=== PATIENT | male | born 1965 ===

== ENCOUNTER 2017-05-21 17:14 | Inpatient (IN) | payer OTHER ==
[2017-05-21] MEDS ORDERED: DiphenhydrAMINE 50 mg/ml Inj IVP STA (17:41)
[2017-05-21] MEDS ORDERED: ceFAZolin 1 GM in Sodium Chloride 0.9% 100 ML IVPB ONE (17:44)
[2017-05-21] MEDS ORDERED: Sodium Chloride 0.9% 1,000 ML IV STA (17:45)
--- NOTE | 2017-05-21 17:48 | ED PDOC ---
Lower Extremity Pain/Injury Time Seen by Provider: 05/21/17 17:48 Chief Complaint (Nursing): Lower Extremity Problem/Injury Chief Complaint (Provider): left leg pain/rash History Per: Patient (52 y/o male h/o HEP C/ IVDA here with complaint of generalized urticaria and itching x 3 days with increasing pain/swelling left leg. Denies any fevers or chills. Unsure of any allergens.) Past Medical History Reviewed: Historical Data, Nursing Documentation, Vital Signs Vital Signs: Last Vital Signs Temp 98.2 F 05/21/17 17:21 Pulse 92 H 05/21/17 17:21 Resp 97 H 05/21/17 17:21 BP Pulse Ox - Family History Family History: States: No Known Family Hx - Allergies Allergies/Adverse Reactions: Allergies Allergy/AdvReac Type Severity Reaction Status Date / Time No Known Allergies Allergy Verified 10/30/16 18:13 Review of Systems ROS Statement: Except As Marked, All Systems Reviewed And Found Negative Physical Exam - Reviewed Nursing Documentation Reviewed: Yes Vital Signs Reviewed: Yes - Physical Exam Appears: Positive for: Well, Non-toxic, No Acute Distress Head Exam: Positive for: ATRAUMATIC, NORMAL INSPECTION, NORMOCEPHALIC Skin: Positive for: Normal Color, Warm, Rash (urticaria noted posterior thorax. similar elevated erythematous lesions noted upper and lower extremities. ) Eye Exam: Positive for: EOMI, Normal appearance, PERRL ENT: Positive for: Normal ENT Inspection Neck: Positive for: Normal, Painless ROM Cardiovascular/Chest: Positive for: Regular Rate, Rhythm Respiratory: Positive for: CNT, Normal Breath Sounds Gastrointestinal/Abdominal: Positive for: Normal Exam, Bowel Sounds, Soft Back: Positive for: Normal Inspection Extremity: Positive for: Normal ROM, Tenderness, Swelling, Other (left leg with erythema and pitting edema ) Neurologic/Psych: Positive for: Alert, Oriented - Laboratory Results Result Diagrams: 05/21/17 18:40 05/21/17 18:40 - Progress ED Course And Treament: Ancef 1 gm Vancomycin 1200 mg iv x 1 dose NS 1 liter 500 ml per hour duplex: neg for dvt Vitals repeated. wnl d/w family med resident Admit to nydia for cellulitis Disposition - Clinical Impression Clinical Impression: Cellulitis - Patient ED Disposition Is Patient to be Admitted: Yes - Disposition Disposition Time: 20:21 Condition: FAIR Forms: [facility] (French) - Pt Status Changed To: Hospital Disposition Of: Inpatient - Admit Certification Admit to Inpatient:: After my assessment, the patient will require hospitalization for at least two midnights. This is because of the severity of symptoms shown, intensity of services needed, and/or the medical risk in this patient being treated as an outpatient.
[2017-05-21] MEDS ORDERED: DiphenhydrAMINE 50 mg/ml Inj ONE (18:44)
[2017-05-21 19:03] LABS: BASO % 0.3 % (0.0-2.0); EOS # 0.3 K/uL (0.0-0.7); EOS % 4.1 % (0.0-4.0); HEMOGLOBIN 14.1 g/dL (12.0-18.0); LYMPH # 2.6 K/uL (1.0-4.3); LYMPH % 33.3 % (20.0-40.0); MEAN CELL VOLUME 87.8 fl (80.0-94.0); MEAN CORPUSCULAR HEMOGLOBIN 28.7 pg (27.0-31.0); MEAN CORPUSCULAR HGB CONC 32.7 g/dL (33.0-37.0); MEAN PLATELET VOLUME 8.8 fl (7.2-11.7); MONO # 0.5 K/uL (0.0-0.8); MONO % 6.3 % (0.0-10.0); NEUT # 4.4 K/uL (1.8-7.0); NRBC % 0.1 % (0.0-0.0); RBC 4.91 Mil/uL (4.40-5.90); RED CELL DISTRIBUTION WIDTH 14.4 % (11.5-14.5); WHITE BLOOD COUNT 7.9 K/uL (4.8-10.8)
[2017-05-21 19:24] LABS: ALB/GLOB RATIO 1.3 (1.0-2.1); ALBUMIN 4.4 g/dL (3.5-5.0); ALT/SGPT 47 U/L (21-72); AST/SGOT 33 U/L (17-59); BLOOD UREA NITROGEN 14 mg/dl (9-20); CALCIUM 9.4 mg/dL (8.4-10.2); GFR AFRICAN-AMERICAN > 60; GFR NON-AFRICAN AMERICAN > 60
--- NOTE | 2017-05-21 20:14 | US ---
EXAM: US Duplex Left Lower Extremity Veins CLINICAL HISTORY: 52 years old, male; Pain; Leg, lower; Left; Additional info: R/O dvt TECHNIQUE: Real-time ultrasound scan of the veins of the left lower extremity with color Doppler flow, spectral waveform analysis and compression. COMPARISON: No relevant prior studies available. FINDINGS: Real-time imaging shows veins with normal compressibility. Doppler evaluation shows normal venous flow with respiratory variation and augmentation with distal compression. Left groin lymph node measured at 2.8 x 0.8 cm in. IMPRESSION: No evidence for deep venous thrombosis in the visualized veins.
[2017-05-21 20:31] LABS: VENOUS BLOOD GAS PCO2 64 mmHg (40-60); VENOUS BLOOD GAS PO2 16 mm/Hg (30-55); VENOUS BLOOD PH 7.31 (7.32-7.43)
--- NOTE | 2017-05-21 21:08 | CP.PCM.HP ---
History of Present Illness - History of Present Illness History of Present Illness: 52 yr old M with PMH of IV drug abuse ( heroine use x 20 yrs) presenting with 3 week history of worsening left leg cellulitis. Started as swelling and ''rash'' per patient approx 3 weeks ago proximal to the left ankle. Denies recent injury or trauma to the area, recent travel or hospitalizations, denies using feet as injection site for heroine use. Denies fevers, chills, n/v/cp/sob/abd pain/urinary sx or bloody stools. Admits to heroine use x 20 years, uses median cubital and cephalic veins BL as primary injection sites. Denies ETOH, tobacco or other drugs. PMD: seen once at [facility] PMH: denies PSH: denies Allergies:NKDA MEds: none SH: Admits to heroine use x 20 years, uses median cubital and cephalic veins BL as primary injection sites. Denies ETOH, tobacco or other drugs. ED Course: Ancef IV x 1, Vanco IV x 1, BCX, labs, no leukocytosis, EKG, VSS afebrile Present on Admission - Present on Admission Any Indicators Present on Admission: No History of DVT/PE: No History of Uncontrolled Diabetes: No Review of Systems - Review of Systems Review of Systems: see hpi Past Patient History - Past Social History Smoking Status: Heavy Smoker > 10 Cigarettes Daily - HEMATOLOGICAL/ONCOLOGICAL Hx Hepatitis C: Yes - PSYCHIATRIC Hx Substance Use: No - ANESTHESIA Hx Anesthesia: No Meds Allergies/Adverse Reactions: Allergies Allergy/AdvReac Type Severity Reaction Status Date / Time No Known Allergies Allergy Verified 05/21/17 20:30 Physical Exam - Constitutional Appears: Non-toxic, No Acute Distress - Head Exam Head Exam: ATRAUMATIC - Eye Exam Eye Exam: EOMI Pupil Exam: PERRL - ENT Exam ENT Exam: Mucous Membranes Moist - Neck Exam Neck exam: Positive for: Full Rom. Negative for: Lymphadenopathy - Respiratory Exam Respiratory Exam: Clear to Auscultation Bilateral - Cardiovascular Exam Cardiovascular Exam: REGULAR RHYTHM, +S1, +S2 - GI/Abdominal Exam GI & Abdominal Exam: Normal Bowel Sounds, Soft. absent: Tenderness - Extremities Exam Extremities exam: Positive for: normal capillary refill, pedal edema (left sided pedal edema, ), pedal pulses present (1+ on left, 2+ on right) Additional comments: UE: BL median cubital track cooley noted, no erythema or infection noted LLE: erythema and swelling extending from ankle joint up to mid tibial region, sensation and ROM intact distal to infection - Neurological Exam Neurological exam: Alert, Oriented x3 - Psychiatric Exam Psychiatric exam: Normal Affect, Normal Mood - Skin Skin Exam: Erythema, Urticaria Additional comments: BL lower extremity urticaria present Results - Vital Signs Recent Vital Signs: Last Vital Signs Temp 98.4 F 05/21/17 20:13 Pulse 84 05/21/17 20:13 Resp 18 05/21/17 20:13 BP 109/69 05/21/17 20:13 Pulse Ox 98 05/21/17 20:13 - Labs Result Diagrams: 05/21/17 18:40 05/21/17 18:40 Labs: Laboratory Results - last 24 hr 05/21/17 20:15 pO2 16 L VBG pH 7.31 L VBG pCO2 64 H VBG HCO3 25.9 VBG Total CO2 34.2 H VBG O2 Sat (Calc) 29.6 L VBG Base Excess 4.0 H VBG Potassium 4.8 Sodium 140.0 Chloride 104.0 Glucose 99 Lactate 1.3 FiO2 21.0 Venous Blood Potassium 4.8 Assessment & Plan - Assessment and Plan (Free Text) Plan: 52 yr old M with PMH of IV drug abuse ( heroine use x 20 yrs) presenting with 3 week history of worsening left leg cellulitis. Admitted for IV ABx Left lower extremity cellulitis admit to med/surg ED Course: Ancef IV x 1, Vanco IV x 1, BCX, labs, no leukocytosis, EKG, VSS, afebrile normotensive, no clinical signs of systemic infection c/w IV Vanco 1gm Q12 due to worsening cellulitis repeat labs in AM BCx pending DVT Ppx lovenox 40 SC daily
[2017-05-22 00:50] VITALS: RESP 17
[2017-05-22 03:05] VITALS: BP 104/62; PULSE 67; TEMP 97.6; O2SAT 96
[2017-05-22] MEDS ORDERED: Enoxaparin 40 mg Syringe SC SCH (09:00)
[2017-05-22] MEDS ORDERED: DiphenhydrAMINE 50 mg/ml Inj ONE (11:09)
[2017-05-22] MEDS ORDERED: Vancomycin 1 g Inj ONE (12:00)
== END 2017-05-22 05:30 | disposition left against medical advice (07) | DRG 277 ==
LOC: H.ER 17:14 → H.ERHOLD 19:56 → H.MEDSURG1 05-22 00:57
PROVIDERS: ADMIT Family Medicine Geriatric Medicine; ATTEND Family Medicine Geriatric Medicine
DX: L03.116 Cellulitis of left lower limb (principal); F11.10 Opioid abuse, uncomplicated; B19.20 Unspecified viral hepatitis C without hepatic coma; F17.210 Nicotine dependence, cigarettes, uncomplicated

== ENCOUNTER 2017-05-22 09:47 | Inpatient (IN) | payer OTHER, SELFPAY ==
[2017-05-22 09:54] VITALS: BMI 26.6
--- NOTE | 2017-05-22 10:25 | ED PDOC ---
Lower Extremity Pain/Injury Time Seen by Provider: 05/22/17 09:56 Chief Complaint (Nursing): Lower Extremity Problem/Injury Additional Complaint(s): Patient is a 52 y/o M with IVDA, presenting with left leg cellulitis. Santhosh was admitted to the hospital yesterday and signed out AMA. He is now back, agreeing to inpatient admission for IV antibiotics. Patient was started in the ED on ancef & vancomycin after blood cx were sent. DVT study yesterday negative for dvt. Past Medical History Vital Signs: Last Vital Signs Temp 98 F 05/22/17 10:12 Pulse 101 H 05/22/17 10:12 Resp 18 05/22/17 10:12 BP 128/71 05/22/17 10:12 Pulse Ox 98 05/22/17 10:12 - Medical History PMH: Denies: Chronic Kidney Disease - Family History Family History: States: No Known Family Hx - Home Medications Home Medications: Ambulatory Orders Medication Instructions Recorded No Known Home Med 05/21/17 - Allergies Allergies/Adverse Reactions: Allergies Allergy/AdvReac Type Severity Reaction Status Date / Time No Known Allergies Allergy Verified 05/22/17 10:12 Review of Systems Constitutional: Positive for: Chills. Negative for: Fever Cardiovascular: Negative for: Chest Pain, Palpitations Respiratory: Negative for: Cough, Shortness of Breath, SOB with Exertion Gastrointestinal: Negative for: Nausea, Vomiting, Abdominal Pain, Diarrhea, Constipation Musculoskeletal: Positive for: Leg Pain Neurological: Negative for: Weakness, Numbness Psych: Negative for: Anxiety, Depression Physical Exam - Reviewed Nursing Documentation Reviewed: Yes Vital Signs Reviewed: Yes - Physical Exam Appears: Positive for: Well, Non-toxic Head Exam: Positive for: ATRAUMATIC, NORMAL INSPECTION, NORMOCEPHALIC Eye Exam: Positive for: Normal appearance Neck: Positive for: Supple Cardiovascular/Chest: Positive for: Regular Rate, Rhythm Respiratory: Positive for: Normal Breath Sounds. Negative for: Rhonchi, Stridor , Wheezing Gastrointestinal/Abdominal: Positive for: Soft. Negative for: Tenderness, Mass , Distended Back: Positive for: Normal Inspection Extremity: Positive for: Other (LLE: erythema and swelling from ankle to just distal to knee. distal pulses intact. upper extremity: track cooley) - ECG O2 Sat by Pulse Oximetry: 98 Medical Decision Making Medical Decision Making: Patient needs admission for IV antibiotics after signing out AMA yesterday. Paged resident for Dr. Junior. Will get labs and continue antibiotics. 10:38AM Spoke to resident who is requesting med/sx admission under Dr. Carolina Marie Disposition - Clinical Impression Clinical Impression: Cellulitis - Disposition Disposition Time: 10:38 Condition: GOOD Forms: [employer] (French) - Pt Status Changed To: Hospital Disposition Of: Inpatient - Admit Certification Admit to Inpatient:: After my assessment, the patient will require hospitalization for at least two midnights. This is because of the severity of symptoms shown, intensity of services needed, and/or the medical risk in this patient being treated as an outpatient.
[2017-05-22] MEDS ORDERED: ceFAZolin 1 GM in Sodium Chloride 0.9% 100 ML IVPB ONE (10:30)
[2017-05-22] MEDS ORDERED: DiphenhydrAMINE 50 mg/ml Inj IVP STA (10:57)
[2017-05-22 11:09] LABS: BASO % 0.1 % (0.0-2.0); EOS % 0.1 % (0.0-4.0); HEMATOCRIT 40.9 % (35.0-51.0); LYMPH # 1.4 K/uL (1.0-4.3); LYMPH % 11.5 % (20.0-40.0); MEAN CELL VOLUME 87.2 fl (80.0-94.0); MEAN CORPUSCULAR HEMOGLOBIN 28.3 pg (27.0-31.0); MEAN CORPUSCULAR HGB CONC 32.5 g/dL (33.0-37.0); MONO # 0.3 K/uL (0.0-0.8); NEUT # 10.8 K/uL (1.8-7.0); NEUT % 86.3 % (50.0-75.0); RED CELL DISTRIBUTION WIDTH 14.5 % (11.5-14.5)
[2017-05-22 11:10] LABS: WHITE BLOOD COUNT 12.5 K/uL (4.8-10.8)
[2017-05-22 11:14] LABS: ALB/GLOB RATIO 1.3 (1.0-2.1); ALKALINE PHOSPHATASE 72 U/L (38-126); ALT/SGPT 44 U/L (21-72); AST/SGOT 24 U/L (17-59); BILIRUBIN,TOTAL 0.6 mg/dl (0.2-1.3); BLOOD UREA NITROGEN 15 mg/dl (9-20); CALCIUM 9.4 mg/dL (8.4-10.2); CARBON DIOXIDE 25 mmol/L (22-30); CHLORIDE 102 mmol/L (98-107); GFR AFRICAN-AMERICAN > 60; GLUCOSE,RANDOM 196 mg/dL (75-110); POTASSIUM 4.2 MMOL/L (3.6-5.0); SODIUM 140 mmol/l (132-148); TOTAL PROTEIN 7.5 G/DL (6.3-8.2)
[2017-05-22] MEDS ORDERED: Alum-Mag Hydrox-Simethicone Susp (30 mL) PO PRN (12:11)
--- NOTE | 2017-05-22 12:11 | CP.PCM.HP ---
History of Present Illness - History of Present Illness History of Present Illness: 52 yr old M with PMH of IV drug abuse of heroin for past 20+years, presenting with 3 week history of worsening left leg swelling and itching with associated blisters.. Patient was seen in ED yesterday and left AMA due to withdrawal symptoms. He returns with same complaints. Papular rash on anterior chest and arms began 3 days prior to admission, had blisters on left lower extremity that the patient 'popped.' Patient injects only in arms. Denies recent injury or trauma to the area. No recent travel or hospitalizations. Denies fevers, chills, chest pain, dyspnea, nausea, vomiting, abdominal pain, constipation or diarrhea, no urinary symptoms. PMD: seen once at [facility] PMH: heart murmur as a child, Hepatitis C s/p treatment 5 years ago, depression in the past PSH: denies Allergies:NKDA Meds: none SH: heroin use , denies ETOH, tobacco or other drugs. Lives with his family in an apartment. ED Course: T:98, HR: 101, BP: 128/71, Spo2:98 RR: 17 Ancef IV x 1, Vanco IV x 1 Leukocytosis :12.5 CMP WNL except for glucose 196 Lactate 1.3 Present on Admission - Present on Admission Any Indicators Present on Admission: No Review of Systems - Constitutional Constitutional: absent: Chills, Fever, Night Sweats - EENT Eyes: absent: Change in Vision - Cardiovascular Cardiovascular: Leg Edema (left leg). absent: Chest Pain, Dyspnea, Edema, Palpitations - Respiratory Respiratory: absent: Cough, Dyspnea, Dyspnea on Exertion - Gastrointestinal Gastrointestinal: absent: Abdominal Pain, Diarrhea, Nausea, Vomiting - Genitourinary Genitourinary: absent: Dysuria, Nocturia, Urinary Frequency, Urinary Urgency - Musculoskeletal Musculoskeletal: absent: Muscle Weakness - Hematologic/Lymphatic Hematologic: absent: Easy Bleeding, Easy Bruising Past Patient History - Infectious Disease Hx of Infectious Diseases: None - Tetanus Immunizations Tetanus Immunization: Unknown - Past Medical History & Family History Past Medical History?: Yes - Past Social History Smoking Status: Heavy Smoker > 10 Cigarettes Daily Alcohol: None Drugs: Opiates Home Situation {Lives}: With Family - CARDIAC Hx Cardiac Disorders: No - PULMONARY Hx Respiratory Disorders: No - NEUROLOGICAL Hx Neurological Disorder: No - HEENT Hx HEENT Problems: No - RENAL Hx Chronic Kidney Disease: No - ENDOCRINE/METABOLIC Hx Endocrine Disorders: No - HEMATOLOGICAL/ONCOLOGICAL Hx Blood Disorders: Yes Hx Hepatitis C: Yes - INTEGUMENTARY Hx Dermatological Problems: No - MUSCULOSKELETAL/RHEUMATOLOGICAL Hx Musculoskeletal Disorders: No Hx Falls: No - GASTROINTESTINAL Hx Gastrointestinal Disorders: No - GENITOURINARY/GYNECOLOGICAL Hx Genitourinary Disorders: No - PSYCHIATRIC Hx Substance Use: Yes (heroine- last use 05/21/2017) - SURGICAL HISTORY Hx Surgeries: No - ANESTHESIA Hx Anesthesia: No Hx Anesthesia Reactions: (n/a) Hx Malignant Hyperthermia: (n/a) Meds Allergies/Adverse Reactions: Allergies Allergy/AdvReac Type Severity Reaction Status Date / Time No Known Allergies Allergy Verified 05/22/17 10:12 Physical Exam - Constitutional Appears: No Acute Distress (diaphoretic) - Head Exam Head Exam: ATRAUMATIC, NORMOCEPHALIC - Eye Exam Eye Exam: Normal appearance, PERRL Pupil Exam: absent: Miosis - ENT Exam ENT Exam: Mucous Membranes Moist, Normal Oropharynx Additional comments: grade 3 microtia of right ear - Neck Exam Neck exam: Negative for: Tenderness, Thyromegaly - Respiratory Exam Respiratory Exam: Clear to Auscultation Bilateral, NORMAL BREATHING PATTERN. absent: Decreased Breath Sounds, Rales, Rhonchi, Wheezes, Respiratory Distress Additional comments: papular rash of anteior chest and arms - Cardiovascular Exam Cardiovascular Exam: Tachycardia (Hr), REGULAR RHYTHM - GI/Abdominal Exam GI & Abdominal Exam: Normal Bowel Sounds, Soft. absent: Distended, Guarding, Tenderness - Rectal Exam Rectal Exam: Deferred - Extremities Exam Extremities exam: Negative for: pedal edema Additional comments: erythema of left lower extremity - Back Exam Back exam: NORMAL INSPECTION - Neurological Exam Neurological exam: Alert, CN II-XII Intact, Oriented x3 - Skin Additional comments: tanned skin, erythema/sunburn of face, left lower extremity erythema, marked today, extending from iris placed yesterday Results - Vital Signs Recent Vital Signs: Last Vital Signs Temp 98.2 F 05/22/17 12:08 Pulse 92 H 05/22/17 12:07 Resp 16 05/22/17 12:07 BP 130/70 05/22/17 12:07 Pulse Ox 98 05/22/17 12:07 - Labs Result Diagrams: 05/22/17 10:58 05/22/17 10:58 Labs: Laboratory Results - last 24 hr 05/22/17 05/22/17 10:58 10:58 WBC 12.5 H D RBC 4.69 Hgb 13.3 Hct 40.9 MCV 87.2 MCH 28.3 MCHC 32.5 L RDW 14.5 Plt Count 185 MPV 9.0 Neut % (Auto) 86.3 H Lymph % (Auto) 11.5 L [place] % (Auto) 2.0 Eos % (Auto) 0.1 Baso % (Auto) 0.1 Neut # 10.8 H Lymph # 1.4 [place] # 0.3 Eos # 0.0 Baso # 0.0 Sodium 140 Potassium 4.2 Chloride 102 Carbon Dioxide 25 Anion Gap 17 BUN 15 Creatinine 0.7 L Est GFR ( Amer) > 60 Est GFR (Non-Af Amer) > 60 Random Glucose 196 H Calcium 9.4 Total Bilirubin 0.6 AST 24 ALT 44 Alkaline Phosphatase 72 Total Protein 7.5 Albumin 4.3 Globulin 3.2 Albumin/Globulin Ratio 1.3 Assessment & Plan (1) Cellulitis Assessment and Plan: 52 year old M with PMH of IV drug abuse of heroin for past 20+years, presenting with 3 week history of worsening left leg swelling and itching with associated blisters admitted for cellulitis of left lower extremity. Patient is tachychardic, with leukocytosis of 12.5. -s/p Vancomycin and Ancef -vancomycin q 12, will monitor renal function and vanco trough in AM. -monitor for fever -if patient spikes temp, cuevas culture and add zosyn. -await blood cultures Status: Acute (2) Opioid abuse Assessment and Plan: opiod withdrawal protocol in place monitor for signs of withdrawal -HIV in AM Status: Chronic (3) DVT prophylaxis Assessment and Plan: lovenox 40mg sc Status: Acute
[2017-05-22 16:10] VITALS: RESP 18
[2017-05-23 07:47] VITALS: BP 128/78; PULSE 101; TEMP 97.3; O2SAT 99
[2017-05-23 08:39] LABS: BLOOD UREA NITROGEN 18 mg/dl (9-20); CARBON DIOXIDE 27 mmol/L (22-30); CHLORIDE 103 mmol/L (98-107); GFR AFRICAN-AMERICAN > 60; GLUCOSE,RANDOM 109 mg/dL (75-110); POTASSIUM 3.6 MMOL/L (3.6-5.0); SODIUM 141 mmol/l (132-148)
[2017-05-23 08:40] LABS: BASO % 0.6 % (0.0-2.0); EOS # 0.6 K/uL (0.0-0.7); HEMATOCRIT 41.6 % (35.0-51.0); LYMPH % 45.9 % (20.0-40.0); MEAN CELL VOLUME 87.2 fl (80.0-94.0); MEAN CORPUSCULAR HGB CONC 33.3 g/dL (33.0-37.0); MEAN PLATELET VOLUME 9.1 fl (7.2-11.7); MONO # 0.6 K/uL (0.0-0.8); MONO % 7.3 % (0.0-10.0); NEUT # 3.4 K/uL (1.8-7.0); NEUT % 39.2 % (50.0-75.0); NRBC % 0.2 % (0.0-0.0); WHITE BLOOD COUNT 8.8 K/uL (4.8-10.8)
[2017-05-23] MEDS ORDERED: Multivitamin With Minerals Tab PO SCH (09:00)
[2017-05-23] MEDS ORDERED: Enoxaparin 40 mg Syringe SC SCH (09:00)
[2017-05-23 09:46] LABS: HEMATOCRIT 40.6 % (35.0-51.0); MEAN CELL VOLUME 87.2 fl (80.0-94.0); MEAN CORPUSCULAR HEMOGLOBIN 29.1 pg (27.0-31.0); MEAN CORPUSCULAR HGB CONC 33.4 g/dL (33.0-37.0); RED CELL DISTRIBUTION WIDTH 14.9 % (11.5-14.5)
--- NOTE | 2017-05-23 12:58 | CP.PCM.DIS ---
Provider - Provider Date of Admission: 05/22/17 10:37 Attending physician: Carolina Marie MD Primary care physician: [facility] Time Spent in preparation of Discharge (in minutes): 35 Diagnosis - Discharge Diagnosis (1) Cellulitis Status: Acute Comment: Improved with vancomycin and ancef. Blood cultures no growth to date, afebrile, leukocytosis resolved. Will discharge with 8 days of Clindamycin 300mg TID for completion of 10 days of antibiotics. (2) Opioid abuse Status: Chronic Hospital Course - Lab Results Lab Results: Micro Results 05/22/17 10:50 Blood Blood Culture - Preliminary NO GROWTH AFTER 24 HOURS Most Recent Lab Values WBC 7.0 K/uL (4.8-10.8) 05/23/17 09:40 RBC 4.65 Mil/uL (4.40-5.90) 05/23/17 09:40 Hgb 13.5 g/dL (12.0-18.0) 05/23/17 09:40 Hct 40.6 % (35.0-51.0) 05/23/17 09:40 MCV 87.2 fl (80.0-94.0) 05/23/17 09:40 MCH 29.1 pg (27.0-31.0) 05/23/17 09:40 MCHC 33.4 g/dL (33.0-37.0) 05/23/17 09:40 RDW 14.9 % (11.5-14.5) H 05/23/17 09:40 Plt Count 170 K/uL (130-400) 05/23/17 09:40 MPV 9.1 fl (7.2-11.7) 05/23/17 06:30 Neut % (Auto) 39.2 % (50.0-75.0) L 05/23/17 06:30 Lymph % (Auto) 45.9 % (20.0-40.0) H 05/23/17 06:30 [place] % (Auto) 7.3 % (0.0-10.0) 05/23/17 06:30 Eos % (Auto) 7.0 % (0.0-4.0) H 05/23/17 06:30 Baso % (Auto) 0.6 % (0.0-2.0) 05/23/17 06:30 Neut # 3.4 K/uL (1.8-7.0) 05/23/17 06:30 Lymph # 4.0 K/uL (1.0-4.3) 05/23/17 06:30 [place] # 0.6 K/uL (0.0-0.8) 05/23/17 06:30 Eos # 0.6 K/uL (0.0-0.7) 05/23/17 06:30 Baso # 0.0 K/uL (0.0-0.2) 05/23/17 06:30 Sodium 141 mmol/l (132-148) 05/23/17 06:30 Potassium 3.6 MMOL/L (3.6-5.0) 05/23/17 06:30 Chloride 103 mmol/L (98-107) 05/23/17 06:30 Carbon Dioxide 27 mmol/L (22-30) 05/23/17 06:30 Anion Gap 14 (10-20) 05/23/17 06:30 BUN 18 mg/dl (9-20) 05/23/17 06:30 Creatinine 0.8 mg/dL (0.8-1.5) 05/23/17 06:30 Est GFR ( Amer) > 60 05/23/17 06:30 Est GFR (Non-Af Amer) > 60 05/23/17 06:30 Random Glucose 109 mg/dL (75-110) 05/23/17 06:30 Calcium 9.0 mg/dL (8.4-10.2) 05/23/17 06:30 Total Bilirubin 0.6 mg/dl (0.2-1.3) 05/22/17 10:58 AST 24 U/L (17-59) 05/22/17 10:58 ALT 44 U/L (21-72) 05/22/17 10:58 Alkaline Phosphatase 72 U/L (38-126) 05/22/17 10:58 Total Protein 7.5 G/DL (6.3-8.2) 05/22/17 10:58 Albumin 4.3 g/dL (3.5-5.0) 05/22/17 10:58 Globulin 3.2 gm/dL (2.2-3.9) 05/22/17 10:58 Albumin/Globulin Ratio 1.3 (1.0-2.1) 05/22/17 10:58 Urine Opiates Screen Positive (NEGATIVE) H 05/22/17 19:07 Urine Methadone Screen Negative (NEGATIVE) 05/22/17 19:07 Ur Barbiturates Screen Negative (NEGATIVE) 05/22/17 19:07 Ur Phencyclidine Scrn Negative (NEGATIVE) 05/22/17 19:07 Ur Amphetamines Screen Negative (NEGATIVE) 05/22/17 19:07 U Benzodiazepines Scrn Negative (NEGATIVE) 05/22/17 19:07 U Oth Cocaine Metabols Negative (NEGATIVE) 05/22/17 19:07 U Cannabinoids Screen Negative (NEGATIVE) 05/22/17 19:07 - Hospital Course Hospital Course: 52 year old male with hx of opiod dependence admitted for left lower extremity cellulitis. Patient remained afebrile through out the admission and leukocytosis resolved. Treated with vancomycin and ancef x 2 days with improvement of symptoms. Patient to complete 8 day course of PO antibiotics for a total of 10 days of antibiotic treatment. HIV result pending. F/u outpatient. ER precautions given to patient. - Date & Time of H&P Date of H&P: 05/22/17 Time of H&P: 12:11 Discharge Exam - Head Exam Head Exam: ATRAUMATIC, NORMOCEPHALIC - Eye Exam Eye Exam: Normal appearance - ENT Exam ENT Exam: Mucous Membranes Moist - Respiratory Exam Respiratory Exam: NORMAL BREATHING PATTERN - Cardiovascular Exam Cardiovascular Exam: REGULAR RHYTHM - GI/Abdominal Exam GI & Abdominal Exam: Unremarkable - Neurological Exam Neurological exam: Alert, CN II-XII Intact, Oriented x3 - Psychiatric Exam Psychiatric exam: Normal Affect, Normal Mood - Skin Skin Exam: Dry, Intact Additional comments: mild erythema of left lower extremity, improved from yesterday, receding from marker placed yesterday Discharge Plan - Discharge Medications Prescriptions: RX: Clindamycin [Cleocin] 300 mg PO TID 8 Days - Follow Up Plan Condition: GOOD Disposition: HOME/ ROUTINE Instructions: Cellulitis (DC) Additional Instructions: Patient to follow up at [facility] in 1 -2 weeks for follow up. Take medications as prescribed. Return to hospital for new/worsening conditions. Referrals: [facility] [place] [Outside]
== END 2017-05-23 13:15 | disposition home or self-care (01) | DRG 277 ==
LOC: H.ER 09:47 → H.ERHOLD 10:37 → H.MEDSURG1 12:12
PROVIDERS: ADMIT Family Medicine; ATTEND Family Medicine
DX: L03.116 Cellulitis of left lower limb (principal); F11.10 Opioid abuse, uncomplicated; L29.8 Other pruritus; F17.210 Nicotine dependence, cigarettes, uncomplicated; Z86.19 Personal history of other infectious and parasitic diseases

== ENCOUNTER 2017-10-27 16:54 | Emergency (ER) | payer SELFPAY ==
[2017-10-27 16:54] VITALS: BMI 26.6
[2017-10-27 17:03] VITALS: BP 120/68; PULSE 108; RESP 18; TEMP 97.2; O2SAT 95
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
[2017-10-27 18:04] LABS: BASO % 0.2 % (0.0-2.0); EOS % 0.4 % (0.0-4.0); HEMOGLOBIN 12.9 g/dL (12.0-18.0); LYMPH % 12.1 % (20.0-40.0); MEAN CELL VOLUME 87.4 fl (80.0-94.0); MEAN CORPUSCULAR HEMOGLOBIN 28.3 pg (27.0-31.0); MEAN CORPUSCULAR HGB CONC 32.4 g/dL (33.0-37.0); MEAN PLATELET VOLUME 8.6 fl (7.2-11.7); MONO # 0.5 K/uL (0.0-0.8); MONO % 5.8 % (0.0-10.0); NEUT # 6.4 K/uL (1.8-7.0); NEUT % 81.5 % (50.0-75.0); NRBC % 0.1 % (0.0-0.0); RBC 4.55 Mil/uL (4.40-5.90); RED CELL DISTRIBUTION WIDTH 13.6 % (11.5-14.5); WHITE BLOOD COUNT 7.9 K/uL (4.8-10.8)
[2017-10-27 18:23] LABS: ALB/GLOB RATIO 1.2 (1.0-2.1); ALBUMIN 3.9 g/dL (3.5-5.0); ALT/SGPT 43 U/L (21-72); AST/SGOT 38 U/L (17-59); BLOOD UREA NITROGEN 15 mg/dl (9-20); CALCIUM 9.1 mg/dL (8.4-10.2); GFR AFRICAN-AMERICAN > 60; GFR NON-AFRICAN AMERICAN > 60
--- NOTE | 2017-10-27 19:28 | ED PDOC ---
- Laboratory Results Result Diagrams: 10/27/17 17:52 10/27/17 17:52 - ECG O2 Sat by Pulse Oximetry: 95 Medical Decision Making Medical Decision Making: Time: 19:00 --Transfer of care endorsed to me pending clinical sobriety. Time: 21:30 --Patient is now improved and ambulates well with steady gait. Is clinically sober and stable for discharged. Patient requires no further treatment in the ED at this time and will be discharged home. Scribe Attestation: Documented by Melody Madison, acting as a scribe for Sapna Stein MD Provider Scribe Attestation: All medical record entries made by the Scribe were at my direction and personally dictated by me. I have reviewed the chart and agree that the record accurately reflects my personal performance of the history, physical exam, medical decision making, and the department course for this patient. I have also personally directed, reviewed, and agree with the discharge instructions and disposition Disposition Doctor Will See Patient In The: Office Counseled Patient/Family Regarding: Studies Performed, Diagnosis, Need For Followup - Clinical Impression Clinical Impression: Overdose of drug/medicinal substance - POA Present On Arrival: None - Disposition Referrals: [facility] [Outside] Disposition: Routine/Home Disposition Time: 21:28 Condition: IMPROVED Instructions: Narcotic Abuse (ED)
[2017-10-27 20:33] LABS: BARBITURATES, UR NEGATIVE (NEGATIVE); BENZODIAZEPINES, UR POSITIVE (NEGATIVE); OPIATES, UR POSITIVE (NEGATIVE); PHENCYCLIDINE, UR NEGATIVE (NEGATIVE)
--- NOTE | 2017-10-28 10:57 | RAD ---
HISTORY: OD COMPARISON: No prior. FINDINGS: LUNGS: No active pulmonary disease. PLEURA: No significant pleural effusion identified, no pneumothorax apparent. CARDIOVASCULAR: Normal. OSSEOUS STRUCTURES: No significant abnormalities. VISUALIZED UPPER ABDOMEN: Normal. OTHER FINDINGS: None. IMPRESSION: No active disease.
--- NOTE | 2017-10-28 11:07 | CARD ---
APPROVED REPORT EKG Measurement Heart [id number] NM [id number] <Conclusion> Sinus tachycardia Otherwise normal ECG
== END 2017-10-27 22:15 | disposition home or self-care (01) ==
LOC: H.ER 16:54
DX: F11.10 Opioid abuse, uncomplicated (principal)

== ENCOUNTER 2018-12-10 14:13 | Emergency (ER) | payer MEDICAID, SELFPAY ==
[2018-12-10 14:14] VITALS: BMI 26.6
[2018-12-10 14:25] VITALS: BP 145/76; PULSE 99; RESP 20; TEMP 97.9; O2SAT 100
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
== END 2018-12-10 17:28 | disposition home or self-care (01) ==
LOC: H.ER 14:13
DX: S50.01XA Contusion of right elbow, initial encounter (principal); S80.01XA Contusion of right knee, initial encounter; S39.92XA Unspecified injury of lower back, initial encounter; S09.90XA Unspecified injury of head, initial encounter; F17.200 Nicotine dependence, unspecified, uncomplicated; V03.90XA Pedestrian on foot injured in collision with car, pick-up truck or van, unspecified whether traffic or nontraffic accident, initial encounter